=== PATIENT | male | born 1965 | race Two or more races ===

== ENCOUNTER → 2018-01-21 | Outpatient (CLI) | payer MEDICARE, MEDICAID ==
[~2018-01-21] VITALS: Ht 185.4 cm; Wt 91.0 kg
[~2018-01-21] MED LIST: NEOMYCIN/BACITRACIN/POLYMYXIN B OINTMENT PACKET TP ONE; TETANUS/DIPHTHERIA TOXOID [ADULT] 0.5 ML SYRINGE IM ONE
[2018-01-21 11:36] VITALS: BP 83/53
== END | disposition home or self-care (01) ==
LOC: SRCNTR 11:14
PROVIDERS: ATTEND Internal Medicine Cardiovascular Disease
DX: I13.11 Hypertensive heart and chronic kidney disease without heart failure, with stage 5 chronic kidney disease, or end stage renal disease (principal); N18.6 End stage renal disease; J44.9 Chronic obstructive pulmonary disease, unspecified; I25.10 Atherosclerotic heart disease of native coronary artery without angina pectoris; M10.9 Gout, unspecified; E78.5 Hyperlipidemia, unspecified; F17.210 Nicotine dependence, cigarettes, uncomplicated; Z59.0 Homelessness; Z95.5 Presence of coronary angioplasty implant and graft; Z99.2 Dependence on renal dialysis
CPT/HCPCS: 90714; G0463

== ENCOUNTER 2018-08-10 14:35 | Inpatient (IN) | payer MEDICARE, MEDICAID ==
[~2018-08-10] VITALS: Ht 185.4 cm; Wt 90.8 kg
[2018-08-10] MEDS ORDERED: CLON.3 PO (15:25)
[2018-08-10] MEDS ORDERED: VALS160T31 PO (15:25)
[2018-08-10] MEDS ORDERED: CARV6.2534 PO (15:25)
[2018-08-10] MEDS ORDERED: HYDR100T28 PO (15:25)
[2018-08-10] MEDS ORDERED: DOCU250C90 PO (15:25)
[2018-08-10] MEDS ORDERED: ISOS120T10 PO (15:25)
[2018-08-10] MEDS ORDERED: NIFE30TA91 PO (15:25)
[2018-08-10] MEDS ORDERED: ATOR40TA71 PO (15:25)
[2018-08-10] MEDS ORDERED: ASPI-1182 PO (15:31)
[2018-08-10] MEDS ORDERED: ALLO100T PO (15:31)
[2018-08-10] MEDS ORDERED: CALC667C PO (15:31)
[2018-08-10] MEDS ORDERED: SEVEC800 PO (15:32)
[2018-08-10 15:51] LABS: BASOPHILS % (AUTO) 0.9 % (0.0-2.0); EOSINOPHILS % (AUTO) 2.5 % (1.0-6.0); HEMATOCRIT 40.4 % (41-53); HEMOGLOBIN 13.4 g/dL (13.5-17.5); LYMPHOCYTES # (AUTO) 0.8 K/uL (1.0-4.8); LYMPHOCYTES % (AUTO) 15.3 % (22.0-44.0); MEAN CORPUSCULAR HEMOGLOBIN 32.7 pg (26.0-34.0); MEAN CORPUSCULAR HGB CONC 33.2 G/dL (31.0-37.0); MEAN CORPUSCULAR VOLUME 98 fL (80-100); MONOCYTES # (AUTO) 0.6 K/uL (0.1-1.0); MONOCYTES % (AUTO) 11.7 % (2.0-9.0); NEUTROPHILS # (AUTO) 3.8 K/uL (1.8-7.7); NEUTROPHILS % (AUTO) 69.6 % (40.0-70.0); PLATELET COUNT (AUTO) 153 K/uL (150-450); RED BLOOD CELL COUNT(AUTO) 4.11 MIL/uL (4.50-5.90); RED CELL DISTRIBUTION WIDTH 19.7 % (11.5-14.5)
[2018-08-10] MEDS ORDERED: SODIUM CHLORIDE 0.9% 1,000 ML IV ONE ×3 (15:56→18:45)
[2018-08-10 16:01] LABS: ANION GAP 13 mmol/L (8-16); CALCIUM, TOTAL 8.8 mg/dL (8.8-10.5); CARBON DIOXIDE 25 mmol/L (22-29); CHLORIDE 95 mmol/L (98-107); CREATININE 13.26 mg/dL (0.60-1.30); GLOMERULAR FILTR. RATE CALC 4 mL/min (>60); GLUCOSE,RANDOM 116 mg/dL (70-110); POTASSIUM 5.4 mmol/L (3.5-5.1); SODIUM SERUM 133 mmol/L (136-145); UREA NITROGEN, BLOOD 66 mg/dL (7-18)
[2018-08-10 16:07] LABS: ALANINE AMINOTRANSFERASE 13 U/L (12-78); ALBUMIN 3.3 g/dL (3.4-5.0); ALKALINE PHOSPHATASE 129 U/L (46-116); ASPARTATE AMINOTRANSFERASE 12 U/L (15-37); BILIRUBIN,TOTAL 0.4 mg/dL (0.1-1.0); LIPASE 206 U/L (73-393); TOTAL PROTEIN, SERUM 7.8 g/dL (6.4-8.2)
[2018-08-10 16:10] LABS: LACTIC ACID 1.2 mmol/L (0.4-2.0)
[2018-08-10 16:14] LABS: B-TYPE NATRIURETIC PEPTIDE 32 pg/mL (0-100)
[2018-08-10] MEDS ORDERED: ONDANSETRON HCL 4 MG/2 ML VIAL IVP ONE (16:15)
[2018-08-10] MEDS ORDERED: CALCIUM GLUCONATE 100 MG/ML 10 ML IVP ONE (16:15)
[2018-08-10] MEDS ORDERED: NIFE60TA71 PO (17:55)
[2018-08-10] MEDS ORDERED: SODIUM POLYSTYRENE SULFONATE 15 GM/60 ML SUSPENSION BOTTLE PO ONE (18:00)
[2018-08-10] MEDS ORDERED: SODIUM CHLORIDE 0.9% 500 ML IV ONE ×2 (18:30→20:00)
[2018-08-10] MEDS ORDERED: NOREPINEPHRINE 4 MG/D5%-WATER 250 ML IV PRN ×2 (18:30→20:00)
[2018-08-10] MEDS ORDERED: ASPIRIN 325 MG TABLET PO ONE (18:45)
[2018-08-10] MEDS ORDERED: ONDANSETRON HCL 4 MG/2 ML VIAL IVP PRN (19:30)
[2018-08-10] MEDS ORDERED: 0.9% SODIUM CHLORIDE 10 ML SYRINGE IVP PRN (19:30)
[2018-08-10] MEDS ORDERED: ACETAMINOPHEN 325 MG TABLET PO PRN ×2 (19:30→20:00)
[2018-08-10] MEDS ORDERED: OXYGEN THERAPY IH SCH (20:00)
[2018-08-10] MEDS ORDERED: BISACODYL 10 MG RECTAL RECTAL SUPPOSITORY PR PRN (20:00)
[2018-08-10] MEDS: DOCUSATE SODIUM 100 MG CAPSULE PO SCH (21:00)
[2018-08-10 21:32] VITALS: BP 92/50
[2018-08-11] VITALS: BP 108/52
[2018-08-11 04:00] VITALS: BP 106/64
[2018-08-11 05:04] LABS: CALCIUM, TOTAL 8.3 mg/dL (8.8-10.5); CREATININE 13.8 mg/dL (0.60-1.30); POTASSIUM 5.3 mmol/L (3.5-5.1)
[2018-08-11 08:00] VITALS: BP 105/80
[2018-08-11] MEDS: DOCUSATE SODIUM 100 MG CAPSULE PO SCH ×2 (08:10→20:31)
[2018-08-11 12:00] VITALS: BP 108/67
[2018-08-11] MEDS ORDERED: MANNITOL 25%-12.5 GM/50 ML VIAL IVP PRN (15:15)
[2018-08-11 16:00] VITALS: BP 144/106
[2018-08-11 20:32] VITALS: BP 136/86
[2018-08-12 00:15] VITALS: BP 136/76
[2018-08-12 06:05] VITALS: BP 137/77
[2018-08-12 07:38] LABS: CREATININE 11.02 mg/dL (0.60-1.30); MAGNESIUM 1.5 mg/dL (1.80-2.40); PHOSPHORUS 6.6 mg/dL (2.5-4.9); POTASSIUM 5.4 mmol/L (3.5-5.1)
[2018-08-12 07:52] VITALS: BP 155/98
[2018-08-12] MEDS: DOCUSATE SODIUM 100 MG CAPSULE PO SCH (08:54)
[2018-08-12] MEDS ORDERED: MAGNESIUM OXIDE 400 MG TABLET PO ONE (10:15)
[2018-08-12] MEDS ORDERED: SEVELAMER CARBONATE 800 MG TABLET PO SCH (12:00)
[2018-08-12 12:19] VITALS: BP 125/95
== END 2018-08-12 14:40 | disposition home or self-care (01) | DRG 917 ==
LOC: EMS 14:36 → ICU 19:26 → 5N 08-11 19:50
PROVIDERS: ADMIT Internal Medicine; ATTEND Internal Medicine
PROC: 5A1D70Z Performance of Urinary Filtration, Intermittent, Less than 6 Hours Per Day (ICD-10-PCS; principal; 2018-08-11)
DX: T50.991A Poisoning by other drugs, medicaments and biological substances, accidental (unintentional), initial encounter (principal); N18.6 End stage renal disease; I13.2 Hypertensive heart and chronic kidney disease with heart failure and with stage 5 chronic kidney disease, or end stage renal disease; I95.9 Hypotension, unspecified; I50.9 Heart failure, unspecified; F19.10 Other psychoactive substance abuse, uncomplicated; E87.5 Hyperkalemia; I25.10 Atherosclerotic heart disease of native coronary artery without angina pectoris; Z87.891 Personal history of nicotine dependence; Z95.5 Presence of coronary angioplasty implant and graft; Z99.2 Dependence on renal dialysis; Z79.899 Other long term (current) drug therapy; Z79.82 Long term (current) use of aspirin; Y92.89 Other specified places as the place of occurrence of the external cause
CPT/HCPCS: 83605; 83735; 84100; 87040; 87081; 87340; 93005; 93306; 96374; 96375; 99291; G0378; G0480; J0610; J2405; J7030; J7040